=== PATIENT | male | born 1995 | race American Indian/Alaskan Native ===

== ENCOUNTER 2021-06-05 08:38 | Emergency (ER) | payer SELFPAY ==
--- NOTE | 2021-06-05 09:50 | Emergency Department Report ---
ED Chest Pain HPI - General Chief Complaint: Chest Pain Stated Complaint: CHEST PAIN PUI?: Yes Source: patient Mode of arrival: Ambulatory Limitations: No Limitations - History of Present Illness Initial Comments: 25-year-old moderate obese man presents to the emergency room for 1 day history of chest pain. Patient states that it started on his left side that shoots to his right side of his chest. Patient admits to dizziness lightheadedness and fatigue. He denies any nausea no vomiting no shortness of breath. He is vaccinated for Covid but not booster. Denies any lower leg swelling but has a decrease in appetite. He has not been recently checked for Covid. He reports a family history of heart disease. MD Complaint: chest pain Onset/Timin -: days(s) Pain Location: left chest, right chest Severity scale (0 -10): 6 Quality: sharp Improves With: nothing Worsens With: nothing re: denies: nausea, vomting, diaphoresis, dyspnea, sense of impending doom Other Symptoms: denies: cough, fever, leg swelling Treatments Prior to Arrival: none Aspirin use within the Past 7 Days: (0) No - Related Data Allergies Allergy/AdvReac Type Severity Reaction Status Date / Time No Known Allergies Allergy Unverified 06/05/21 09:11 Heart Score - HEART Score History: Moderately suspicious EKG: Normal Age: < 45 Risk factors: 1-2 risk factors Troponin: < normal limit HEART Score: 2 - EKG Read Time Time EKG Completed: 09:17 EKG Read Time: 09:19 ED Review of Systems ROS: Stated complaint: CHEST PAIN Other details as noted in HPI Comment: All other systems reviewed and negative ED Physical Exam - General Limitations: No Limitations General appearance: alert, in no apparent distress - Head Head exam: Present: atraumatic, normocephalic - Eye Eye exam: Present: normal appearance - ENT ENT exam: Present: mucous membranes moist - Neck Neck exam: Present: normal inspection, full ROM. Absent: lymphadenopathy - Respiratory Respiratory exam: Present: normal lung sounds bilaterally. Absent: respiratory distress, chest wall tenderness, accessory muscle use - Cardiovascular Cardiovascular Exam: Present: regular rate, normal rhythm. Absent: systolic murmur, diastolic murmur, rubs, gallop - GI/Abdominal GI/Abdominal exam: Present: soft, tenderness (Epigastric), normal bowel sounds - Rectal Rectal exam: Present: deferred - Extremities Exam Extremities exam: Present: normal inspection, full ROM - Back Exam Back exam: Present: normal inspection, full ROM - Neurological Exam Neurological exam: Present: alert, oriented X3, normal gait - Psychiatric Psychiatric exam: Present: normal affect, normal mood - Skin Skin exam: Present: warm, dry, intact, normal color. Absent: rash ED Course Vital Signs 06/05/21 09:11 Temperature 98.5 F Pulse Rate 56 L Respiratory 15 Rate Blood Pressure 124/79 O2 Sat by Pulse 98 Oximetry RON score - Ron Score Age > 65: (0) No Aspirin use within the Past 7 Days: (0) No 3 or more CAD Risk Factors: (0) No 2 or more Angina events in past 24 hrs: (0) No Known CAD with more than 50% Stenosis: (0) No Elevated Cardiac Markers: (0) No ST Deviation Greater than 0.5mm: (0) No RON Score: 0 ED Medical Decision Making - Lab Data Result diagrams: 06/05/21 10:08 06/05/21 10:08 - Radiology Data Radiology results: report reviewed Study Comments [facility] [address] [place] [address] XRay Report Signed Patient: GIUSEPPE WARNER MR#: [id number] 09 : 1995 Acct:[id number] Age/Sex: 25 / M ADM Date: 06/05/21 Loc: ED Attending Dr: Ordering Physician: ANGELA HALEY Date of Service: 06/05/21 Procedure(s): XR chest routine 2V Accession Number(s): [id number] cc: ANGELA HALEY Fluoro Time In Minutes: CHEST PA AND LATERAL VIEWS INDICATION: sob,cough and rales. COMPARISON: None. FINDINGS: Support devices: None. Heart: Within normal limits. Lungs/Pleura: No acute pulmonary or pleural findings. IMPRESSION: 1. No acute findings. Signer Name: Murray Bergeron MD Signed: 06/05/2021 9:59 AM Workstation Name: [id number] Transcribed By: Dictated By: Murray Bergeron MD Electronically Authenticated By: Murray Bergeron MD Signed Date/Time: 06/05/21 0959 DD/ 0958 TD/TT: - Medical Decision Making 25-year-old morbid obese man presents to the emergency room for 1 day history of chest pain. Patient states that it started on his left side that shoots to his right side of his chest. Patient admits to dizziness light headedness and fatigue. He denies any nausea no vomiting no shortness of breath. He is vaccinated for Covid but not booster. Denies any lower leg swelling but has a decrease in appetite. He has not been recently checked for Covid. He reports a family history of heart disease. Chest pain protocol ordered as patient has a positive family history of cardiac issues. He is morbid obese. EKG is within normal limits. Critical care attestation.: If time is entered above; I have spent that time in minutes in the direct care of this critically ill patient, excluding procedure time. ED Disposition Clinical Impression: Nonspecific chest pain Disposition: HOME / SELF CARE / HOMELESS Is pt being admited?: No Does the pt Need Aspirin: No Condition: Stable Instructions: Nonspecific Chest Pain, Adult, [id number] Additional Instructions: All your studies have come back negative. Chest x-ray shows no acute abnormalities labs are stable. Vital signs are within normal limits. I do recommend you follow-up with your primary care provider as well as a referral to a jira developer. Recommend increase your fluids. Tylenol ibuprofen for pain. Go get Covid testing. Referrals: PRIMARY CAREMD [Primary Care Provider] - 3-5 Days [facility] [Provider Group] - 3-5 Days Forms: Work/School Release Form(ED) Time of Disposition: 13:31
--- NOTE | 2021-06-05 10:03 | XRay Report ---
CHEST PA AND LATERAL VIEWS INDICATION: sob,cough and rales. COMPARISON: None. FINDINGS: Support devices: None. Heart: Within normal limits. Lungs/Pleura: No acute pulmonary or pleural findings. IMPRESSION: 1. No acute findings. Signer Name: Murray Bergeron MD Signed: 06/05/2021 9:59 AM Workstation Name: [id number]
[2021-06-05 10:22] LABS: Basophils % (Auto) 0.7 % (0.0-1.8); Eosinophils # (Auto) 0.1 K/mm3 (0.0-0.4); Eosinophils % (Auto) 0.9 % (0.0-4.3); Hematocrit 47.3 % (35.5-45.6); Hemoglobin 15.5 gm/dl (11.8-15.2); Lymphocytes # (Auto) 1.7 K/mm3 (1.2-5.4); Lymphocytes % (Auto) 29.7 % (13.4-35.0); Mean Corpuscular HGB Conc 33 % (32-34); Mean Corpuscular Volume 89 fl (84-94); Monocytes # (Auto) 0.5 K/mm3 (0.0-0.8); Monocytes % (Auto) 9.1 % (0.0-7.3); Platelet Count 170 K/mm3 (140-440); Red Blood Count 5.33 M/mm3 (3.65-5.03); Red Cell Distribution Width 13.3 % (13.2-15.2)
[2021-06-05 10:36] LABS: Blood Urea Nitrogen 10 mg/dL (9-20); Calcium 10.1 mg/dL (8.4-10.2); Hemolysis Index 9
[2021-06-05 10:54] LABS: BUN/Creatinine Ratio 14
--- NOTE | 2021-06-05 12:26 | Electrocardiograph Report ---
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
[2021-06-05 13:37] VITALS: BP 124/74
== END 2021-06-05 13:37 | disposition home or self-care (01) ==
LOC: ED 08:38
DX: R07.9 Chest pain, unspecified (principal)
CPT/HCPCS: 36415; 71046; 80048; 83690; 84484; 85025; 93005; 99283